=== PATIENT | male | born 2000 | race African-American/Black ===

== ENCOUNTER 2021-02-08 07:39 | Inpatient (IN) | payer OTHER ==
[~2021-02-08] VITALS: Ht 193 cm; Wt 105.2 kg
[2021-02-08 07:47] VITALS: BP 144/62
[2021-02-08 09:59] LABS: ABSOLUTE LYMPHOCYTES 1.7 thou/uL (0.8-5.3); ABSOLUTE MONOCYTES 0.6 thou/uL (0.0-1.2); ABSOLUTE NEUTROPHILS 5.8 thou/uL (1.6-8.1); BASOPHILS 0.4 %; EOSINOPHILS 0.5 %; HEMATOCRIT 42.6 % (42.0-52.0); HEMOGLOBIN 14.7 gm/dL (14.0-18.0); LYMPHOCYTES 21.2 %; MCH 31.7 pg (26.0-34.0); MCHC 34.6 g/dL (28.0-37.0); MCV 91.7 fL (80.0-100.0); MONOCYTES 7.2 %; NUCLEATED RBCS 0 /100WBC; PLATELET COUNT* 137 thou/uL (150-400); POLYS 70.7 %; RBC 4.64 mil/uL (4.50-6.00); RDW-CV 13.4 % (10.5-14.5); WBC 8.2 thou/uL (4.0-11.0)
[2021-02-08 10:30] LABS: CALCIUM 9.2 mg/dL (8.5-10.1); CREATININE 0.9 mg/dL (0.6-1.3)
[2021-02-08 11:25] VITALS: BP 127/71
[2021-02-08 11:33] VITALS: BP 121/61
[2021-02-08 16:00] VITALS: BP 135/66
[2021-02-08 19:30] VITALS: BP 135/84
[2021-02-09 05:18] LABS: ABSOLUTE EOSINOPHILS 0.5 thou/uL (0.0-0.7); ABSOLUTE MONOCYTES 0.5 thou/uL (0.0-1.2); ABSOLUTE NEUTROPHILS 2.1 thou/uL (1.6-8.1); BASOPHILS 0.5 %; EOSINOPHILS 7.8 %; HEMOGLOBIN 14.5 gm/dL (14.0-18.0); LYMPHOCYTES 49.2 %; MCH 31.2 pg (26.0-34.0); MCHC 34.5 g/dL (28.0-37.0); MCV 90.6 fL (80.0-100.0); MONOCYTES 7.5 %; NUCLEATED RBCS 0 /100WBC; PLATELET COUNT* 128 thou/uL (150-400); RBC 4.63 mil/uL (4.50-6.00); RDW-CV 12.8 % (10.5-14.5)
[2021-02-09 05:35] LABS: CALCIUM 8.4 mg/dL (8.5-10.1); CREATININE 0.8 mg/dL (0.6-1.3); POTASSIUM 3.7 mmol/L (3.5-5.1)
[2021-02-09] MEDS ORDERED: HYDROCODON-ACE1 EAC7 PO (09:51)
[2021-02-09] MEDS ORDERED: IBUPROFEN 200200 M1 PO (09:57)
[2021-02-09 10:41] VITALS: BP 137/84
[2021-02-09] MEDS ORDERED: OXYCODONE HCL 55 MG PO (11:02)
[2021-02-09 13:14] VITALS: BP 137/84
[2021-02-09 13:21] VITALS: BP 137/84
[2021-02-09] MEDS ORDERED: KEFLEX250 MG PO (13:24)
== END 2021-02-09 15:35 | disposition home or self-care (01) | DRG 563 ==
LOC: M.ERS 07:39 → M.TBA-ER 09:52 → M.ORTHSURG 11:30
PROVIDERS: Emergency Medicine Emergency Medical Services; ADMIT Internal Medicine; ATTEND Internal Medicine
PROC: 0Y9M3ZZ Drainage of Right Foot, Percutaneous Approach (ICD-10-PCS; principal; 2021-02-09)
DX: S92.354B Nondisplaced fracture of fifth metatarsal bone, right foot, initial encounter for open fracture (principal); F17.210 Nicotine dependence, cigarettes, uncomplicated; D69.6 Thrombocytopenia, unspecified; Z20.822 Contact with and (suspected) exposure to COVID-19; W34.09XA Accidental discharge from other specified firearms, initial encounter; Y93.89 Activity, other specified; Y92.89 Other specified places as the place of occurrence of the external cause; Y99.8 Other external cause status; Z23 Encounter for immunization

== ENCOUNTER 2021-02-17 15:30 | Emergency (ER) | payer OTHER ==
[~2021-02-17] VITALS: Ht 195.6 cm; Wt 104.3 kg
[~2021-02-17 15:30] MED LIST: HYDROCODON-ACE1 EAC7 PO; IBUPROFEN 200200 M1 PO; KEFLEX250 MG PO; OXYCODONE HCL 55 MG PO
[2021-02-17 15:41] VITALS: BP 137/91
[2021-02-17] MEDS ORDERED: HYDROCODON-ACE1 EAC7 PO (17:49)
[2021-02-17] MEDS ORDERED: CEPHALEXIN500 MG PO (17:49)
== END 2021-02-17 18:05 | disposition home or self-care (01) ==
LOC: M.ERS 15:30
DX: S91.331D Puncture wound without foreign body, right foot, subsequent encounter (principal); W34.09XD Accidental discharge from other specified firearms, subsequent encounter